=== PATIENT | female | born 1980 | race Caucasian/White ===

== ENCOUNTER 2017-03-28 12:19 | Outpatient (CLI) | payer MEDICAID ==
[~2017-03-28] VITALS: Ht 162.6 cm; Wt 84.0 kg
[2017-03-28 12:38] VITALS: BP 109/64; PULSE 75; RESP 20; Ht 162.6 cm; Wt 84.0 kg
[2017-03-28] MEDS ORDERED: PRENAT PO (12:38)
--- NOTE | 2017-03-28 14:11 | RADRPT ---
PROCEDURE: US biophysical profile. Transvaginal sonography of the cervix. CLINICAL INDICATION: labor at 27 weeks gestational age. TECHNIQUE: Multiple sonographic images of the uterus were obtained. Transvaginal sonogra phy of the cervix was also performed. The images were reviewed on a PACS workstation. COMPARISON: No prior studies are available for comparison. FINDINGS: There is a single live intrauterine gestation. heart rate is 143 beats per minute. The position is cephalic. The placenta is anterior grade 1 with no abruption or previa. The ALESSIO is 15.5 cm. (Normal = 5-20 cm.) Transvaginal cervical length is 4.2 cm. Breathing Movement: 2 Gross Body Movement: 2 Tone: 2 Qualitative Amniotic Fluid Volume: 2 TOTAL: 8 IMPRESSION: 1. The biophysical score is 8/8. 2. Cervical length is 4.2 cm. RPTAT: QQ .Jacques Dodge MD, MD Date Time Electronically viewed and signed by .Jacques Dodge MD, on 03/28/2017 14:10 .R/
--- NOTE | 2017-03-28 16:58 | TRIAGE ---
OB Triage Datetime Report Generated by CPN: 03/28/2017 16:58 Datetime: 03/28/2017 14:52 Labor Evaluation Frequency: 0 Duration (sec)2399: 0 Contraction Comments: PT DENIES UC'S AT THIS TIME. PT STATES SHE FEELS THE BABY MOVE Heart Rate FHR Baseline Rate: 145 Monitor Mode: External US Variability: Moderate 6-25 bpm Accelerations: 15X15 Decelerations: None Category: Category I Comments: NST REACTIVE FOR GESTATIONAL AGE Datetime: 03/28/2017 13:32 Labor Evaluation Frequency: 0 Monitor Mode: External Heart Rate FHR Baseline Rate: 145 Monitor Mode: External US FHR Baseline Changes: No Baseline Change Variability: Moderate 6-25 bpm Accelerations: 10X10 Decelerations: None Category: Category I Pain Assessment Pain Scale: 0 Pain Presence: None/Denies Pain Type: N/A Pain Goal: 0 Datetime: 03/28/2017 12:34 EGA: 27.4 Datetime: 03/28/2017 12:33 Time of Arrival: 03/28/2017 12:15 Arrived By: Ambulatory Arrived From: Home Chief Complaint: DECREASED MOVEMENT SINCE LAST NIGHT Movement: Decreased Contractions: Denies/Absent Rupture of Membranes: Denies Vaginal Bleeding: None Vaginal Discharge: Denies Recent Sexual Intercouse: Denies Abdominal Trauma: Not Applicable Patient Complaints: Other Time Provider Notified: 03/28/2017 12:55 Provider Notified: DR. BOYD Initial Plan: EFM, BPP Datetime: 03/28/2017 12:30 Stage of : OB Triage Assessment Type: Triage Maternal Assessment Level of Consciousness: Fully Conscious DTR's/Clonus: DTRs 2+; No Clonus Headache: Denies Blurred Vision: No Respiratory Effort: Unlabored; Regular Rhythm; Equal Expansion Breath Sounds, Left: Clear and Equal Breath Sounds, Right: Clear and Equal Nausea/Vomiting: Denies RUQ Epigastric Pain: Denies Lower Extremities Edema: None Degree: None Upper Extremities Edema: None Degree: None Facial Edema: None Fall Risk Assessment History of Falling: (0) No Secondary Diagnosis: (0) No Ambulatory Aid: (0) Bedrest/Nurse Assist IV Therapy: (0) No Gait: (0) Normal/Bedrest/Immobile Mental Status: (0) Oriented to Own Ability Fall Score: 0 Fall Risk Score Definition: No Risk: No action required Monitor Mode: External Monitor Mode: External US Pain Assessment Pain Scale: 0 Pain Presence: None/Denies Pain Type: N/A Pain Goal: 0
--- NOTE | 2017-03-28 20:08 | PN ---
Triage Information Date/Time 03/28/2017 Weeks of Gestation 27 weeks and 2 days : 4 Para: 3 Diabetes: none Hypertention: none Additional information 37-year-old female with IUP at 27 weeks and 4 days presented with complaint of decreased movement since last night. She denies any competition during her course. She also complaining of some random twitching pain in the left lower abdomen and right. Reports pain increases with moving. Denies any leaking of fluid, vaginal bleeding or uterine contractions. BISHOP: December 22, 2016. Denies any abdominal pain or any other complaints. Objective Vital Signs Date Time Temp Pulse Resp B/P Pulse Ox O2 Delivery O2 Flow Rate FiO2 03/28/17 12:38 98.3 75 20 109/64 Room Air Heart Rate: 140's Contractions: None Exam General appearance: Alert and oriented 4 patient does not appear to be in any acute distress Abdomen: Soft, gravid, nontender, no rebound tenderness, no guarding no rigidity Fundal height consistent with gestational age NST: Category 1 BPP: 8/8 Results/Medications Imaging Results PROCEDURE: US biophysical profile. Transvaginal sonography of the cervix. CLINICAL INDICATION: labor at 27 weeks gestational age. TECHNIQUE: Multiple sonographic images of the uterus were obtained. Transvaginal sonography of the cervix was also performed. The images were reviewed on a PACS workstation. COMPARISON: No prior studies are available for comparison. FINDINGS: There is a single live intrauterine gestation. heart rate is 143 beats per minute. The position is cephalic. The placenta is anterior grade 1 with no abruption or previa. The ALESSIO is 15.5 cm. (Normal = 5-20 cm.) Transvaginal cervical length is 4.2 cm. Breathing Movement: 2 Gross Body Movement: 2 Tone: 2 Qualitative Amniotic Fluid Volume: 2 TOTAL: 8 IMPRESSION: 1. The biophysical score is 8/8. 2. Cervical length is 4.2 cm. RPTAT: QQ Assessment/Plan IUP at 27 weeks and 2 days Decreased movement testing reassuring No evidence of labor Plan: DC home labor precaution and kick count discussed Follow-up within 24-48 hours with her primary OB Return to triage as needed or in case of decreased movement, uterine contractions or vaginal bleeding or any other concerns patient verbalized understanding EVERARDO BOYD MD Mar 28, 2017 20:07
== END 2017-03-28 15:05 | disposition home or self-care (01) ==
LOC: L-D 12:19 → OBT 12:19
PROVIDERS: ATTEND Obstetrics & Gynecology
DX: O36.8120 Decreased fetal movements, second trimester, not applicable or unspecified (principal); Z3A.27 27 weeks gestation of pregnancy
CPT/HCPCS: 76817; 76818; Z7500; G0463

== ENCOUNTER 2017-06-07 19:47 | Outpatient (CLI) | payer MEDICAID ==
[~2017-06-07] VITALS: Ht 162.6 cm; Wt 88.9 kg
[~2017-06-07 19:47] MED LIST: PRENAT PO
[2017-06-07 20:54] VITALS: Ht 162.6 cm; Wt 88.9 kg
[2017-06-07 20:55] VITALS: BP 100/67; PULSE 80
[2017-06-07 22:26] LABS: ADD UMIC NO; UR ASCORBIC ACID NEGATIVE (NEGATIVE); UR BILIRUBIN (Dip) NEGATIVE (NEGATIVE); UR BLOOD (Dip) NEGATIVE (NEGATIVE); UR CLARITY CLEAR (CLEAR); UR COLOR STRAW (YELLOW); UR GLUCOSE (Dip) NEGATIVE (NEGATIVE); UR KETONES (Dip) NEGATIVE (NEGATIVE); UR LEUKOCYTE ESTERASE (Dip) NEGATIVE Leu/ul (NEGATIVE); UR NITRITE (Dip) NEGATIVE (NEGATIVE); UR SPECIFIC GRAVITY (Dip) 1.008 (1.003-1.030); UR TOTAL PROTEIN (Dip) NEGATIVE (NEGATIVE); UR UROBILINOGEN (Dip) NEGATIVE (NEGATIVE)
--- NOTE | 2017-06-07 22:49 | TRIAGE ---
OB Triage Datetime Report Generated by CPN: 06/07/2017 22:49 Datetime: 06/07/2017 22:22 Stage of : OB Triage Datetime: 06/07/2017 21:44 Labor Evaluation Frequency: x1 Monitor Mode: External Duration (sec)2399: 60 Resting Tone [place]: Relaxed Heart Rate FHR Baseline Rate: 135 Monitor Mode: External US Variability: Moderate 6-25 bpm Accelerations: 10X10 Decelerations: None Category: Category I Pain Assessment Pain Scale: 5 Pain Presence: Constant Pain Type: Cramping Pain Goal: 3 Pain Relief Measures: Comfort Measures Datetime: 06/07/2017 20:51 Stage of : OB Triage Assessment Type: Triage Maternal Assessment Level of Consciousness: Fully Conscious DTR's/Clonus: DTRs 2+; No Clonus Headache: Denies Blurred Vision: No Respiratory Effort: Unlabored; Regular Rhythm; Equal Expansion Breath Sounds, Left: Clear and Equal Breath Sounds, Right: Clear and Equal Nausea/Vomiting: Denies RUQ Epigastric Pain: Denies Facial Edema: None Temperature Route: Axillary Fall Risk Assessment History of Falling: (0) No Secondary Diagnosis: (0) No Ambulatory Aid: (0) Bedrest/Nurse Assist IV Therapy: (0) No Gait: (0) Normal/Bedrest/Immobile Mental Status: (0) Oriented to Own Ability Fall Score: 0 Fall Risk Score Definition: No Risk: No action required Labor Evaluation Frequency: 0 Monitor Mode: External Resting Tone [place]: Relaxed Heart Rate FHR Baseline Rate: 140 Monitor Mode: External US Variability: Minimal - Undetectable to <=5 bpm Accelerations: None Decelerations: None Category: Category II Pain Assessment Pain Scale: 5 Pain Presence: Constant Pain Type: Cramping Pain Location: Other (Annotations: [place]) Pain Goal: 3 Pain Relief Measures: Comfort Measures Datetime: 06/07/2017 20:49 Time of Arrival: 06/07/2017 19:36 EGA: 37.5 Arrived By: Ambulatory Arrived From: Home Chief Complaint: C/O [place] PAIN THAT IS CONSTANT, DENIES LEAKING, BLEEDING OR UC'S Movement: Present Contractions: Denies/Absent Rupture of Membranes: Denies Vaginal Bleeding: None Vaginal Discharge: Denies Recent Sexual Intercouse: Denies Abdominal Trauma: Not Applicable Patient Complaints: None Time Provider Notified: 06/07/2017 22:22 Provider Notified: RASHEED Initial Plan: MONITOR, Datetime: 03/28/2017 12:34 EGA: 27.4 Datetime: 03/28/2017 12:30 Fall Score: 0 Fall Risk Score Definition: No Risk: No action required
--- NOTE | 2017-06-08 20:34 | PN ---
Triage Information Date/Time Reason for visit: Abd/pelvic pain Weeks of Gestation 37w5d /Para Diabetes: none Hypertention: none Objective Vital Signs Date Time Temp Pulse Resp B/P Pulse Ox O2 Delivery O2 Flow Rate FiO2 06/07/17 20:55 98.2 80 100/67 Heart Rate: 140's Contractions: None Exam abdomen soft no tenderness CVA neg for tenderness Results/Medications Results 24 hrs Laboratory Tests Test 06/07/17 21:00 Urine Color STRAW Urine Clarity CLEAR Urine pH 6.0 Urine Specific [place] 1.008 Urine Ketones NEGATIVE Urine Nitrite NEGATIVE Urine Bilirubin NEGATIVE Urine Urobilinogen NEGATIVE Urine Leukocyte Esterase NEGATIVE Urine Hemoglobin NEGATIVE Urine Glucose NEGATIVE Urine Total Protein NEGATIVE Disposition: Discharge Assessment/Plan IUP 37w5d nil plan dischargehome with routine labor instruction clinic appointment on 06/08/17 ANITA IQBAL MD Jun 08, 2017 20:34
== END 2017-06-07 22:36 | disposition home or self-care (01) ==
LOC: OBT 19:47 → L-D 19:47 → OBT 22:36
PROVIDERS: ATTEND Obstetrics & Gynecology
DX: O26.893 Other specified pregnancy related conditions, third trimester (principal); Z3A.37 37 weeks gestation of pregnancy
CPT/HCPCS: 81003; 87086; G0463

== ENCOUNTER 2017-06-19 05:32 | Inpatient (IN) | payer MEDICAID ==
[~2017-06-19] VITALS: Ht 160 cm; Wt 88.4 kg
[2017-06-19] MEDS ORDERED: CEFAZOLIN 2 GM/50 ML (PMX) 50 ML IVPB ONE (05:34)
[2017-06-19 05:42] VITALS: Ht 160 cm; Wt 88.4 kg
[2017-06-19 05:49] VITALS: BP 108/72; PULSE 80; RESP 16
[2017-06-19] MEDS ORDERED: METHYLERGONOVINE 0.2 MG INJ IM PRN ×2 (06:00→13:30)
[2017-06-19] MEDS ORDERED: OXYTOCIN 30 UNITS/LR 500 ML IV SCH (06:00)
[2017-06-19] MEDS ORDERED: MISOPROSTOL 200 MCG TAB PR PRN ×2 (06:00→13:30)
[2017-06-19] MEDS ORDERED: OXYTOCIN 30 UNITS/LR 500 ML IV PRN ×2 (06:00→13:30)
[2017-06-19] MEDS ORDERED: CARBOPROST 250 MCG INJ IM PRN ×2 (06:00→13:30)
[2017-06-19] MEDS ORDERED: CEFAZOLIN 2 GM/50 ML (PMX) 50 ML IV SCH (06:00)
[2017-06-19 06:23] LABS: BASOPHILS % 0.3 % (0.0-2.0); EOSINOPHILS # 0.3 10^3/ul (0.0-0.5); EOSINOPHILS % 3.2 % (0.0-7.0); HEMOGLOBIN 12.2 g/dl (12.0-16.0); LYMPHOCYTES # 2.4 10^3/ul (0.8-2.9); LYMPHOCYTES % 27.4 % (15.0-51.0); MEAN CORPUSCULAR HEMOGLOBIN 27.5 pg (29.0-33.0); MEAN CORPUSCULAR HGB CONC 32.1 g/dl (32.0-37.0); MEAN CORPUSCULAR VOLUME 85.6 fl (82.0-101.0); MEAN PLATELET VOLUME 11.3 fl (7.4-10.4); MONOCYTE # 0.7 10^3/ul (0.3-0.9); MONOCYTES % 7.6 % (0.0-11.0); NEUTROPHIL # 5.3 10^3/ul (1.6-7.5); NEUTROPHILS % 60.8 % (39.0-77.0); PLATELET COUNT 180 10^3/UL (140-415); RED BLOOD COUNT 4.44 10^6/ul (4.20-5.40); RED CELL DISTRIBUTION WIDTH 14.3 % (11.5-14.5); WHITE BLOOD COUNT 8.7 10^3/ul (4.8-10.8)
[2017-06-19] MEDS ORDERED: LACTATED RINGER'S 1,000 ML IV SCH ×2 (06:30)
[2017-06-19 06:46] LABS: INR 0.86; PROTIME 11.7 Sec (12.2-14.2); PT RATIO 0.9
[2017-06-19 06:47] LABS: PARTIAL THROMBOPLASTIN TIME 25.8 Sec (25.0-35.0)
[2017-06-19] MEDS ORDERED: OXYTOCIN 30 UNITS/LR 500 ML IV ONE (08:30)
[2017-06-19] MEDS ORDERED: EPHEDrine SULFATE 50 MG/5 ML SYG ONE (08:30)
[2017-06-19] MEDS ORDERED: METOCLOPRAMIDE 10 MG INJ ONE (08:31)
[2017-06-19] MEDS ORDERED: morphine SULFATE/PF (10 MG/10 ML) INJ ONE (08:31)
[2017-06-19] MEDS ORDERED: ONDANSETRON 4 MG INJ ONE (08:31)
[2017-06-19] MEDS ORDERED: OXYTOCIN 10 UNIT INJ ONE (08:31)
--- NOTE | 2017-06-19 10:13 | HP ---
Date/Time of Note Date/Time of Note DATE: 06/19/17 TIME: 08:46 OB - History Hx of Present Free Text/Dictation 36 years old female [id number] admitted to [facility] at 39 weeks and 3 days with a history of 3 previous section and requests for bilateral tubal ligation at the time o her fourth section. Patient has been under the care of the [facility] was not complicated with gestational diabetes -induced hypertension [employer] history [place] at age 13 regular periods. Every 28 days lasting 4 to 5 days history of 3 previous with section no other surgery or hospitalization for any other serious surgical or medical condition Allergies denies allergy to any known medication Social habit denies a smoking drinking using illicit drug Review of system within Equal examination 5 feet 3 158 pounds Temperature 98.4 pulse 80 respiration 18 blood pressure 108/72 Dear nose and throat negative Neck supple no thyromegaly Lungs clear to P&A Normal sinus rhythm no murmur Abdomen fundal height measures 37 cm from symphysis pubis with the heart rate category 1 Examination deferred Remedies no edema no varicosities Patient intrauterine at 39 weeks gestation, history of 2 previous section, request for bilateral tubal ligation at the time of her section Complication of the surgery including but not limited to bowel and bladder injury infection wound, hematoma hemorrhage because of numerous previous surgeries to ability of hysterectomy has been because with the patient and she is willing to go ahead with this procedure Chief Complaint: 39 weeks history of 3 previous section request for BTL Estimated Due Date: Jun 23, 2017 : 4 Para: 3 Care: Good Care Ultrasounds: Normal mid trimester US Obstetrical Complications: None Medical Complications: None Past Family/Social History * Past Medical, Surgical, Family and Obstetric Histories reviewed from chart. Rubella: immune RPR/VDRL: Negative GBS Status: Negative HBsAG: Negative OB Admission Exam Vital Signs Vital Signs Vital Signs Date Time Temp Pulse Resp B/P Pulse Ox O2 Delivery O2 Flow Rate FiO2 06/19/17 05:49 98.4 80 16 108/72 Room Air Physical Exam HEENT: WNL Heart: Rhythm Normal Lungs: Clear, Equal Extremities: Normal Reflexes: Normal Cervical Dilatation: None Membranes: Intact Heart Rate: 130's Accelerations: Accelerations Present Decelerations: No Decelerations Varibility: Marked Last 72 hours Lab Results CBC & BMP 06/19/17 06:00 OB Assessment/Plan Reason for admission: other (39weeks 3/7 3previous c section request for tubal ligation complication of surgery discussed including bowl ,blader injury woun infection ,future failure to concive risk of ectopic ,she would like to proceed with the operation) Plan: Other (repeat csection bilateral tubal ligation) Other plan: 39 weeks3/7 hx of 3 previous c section request for tubal ligation, RACHAEL DEMARCO MD Jun 19, 2017 08:56
[2017-06-19] MEDS ORDERED: EPHEDrine SULFATE 50 MG/5 ML SYG IV PRN (10:30)
[2017-06-19] MEDS ORDERED: morphine SULFATE/PF (10 MG/10 ML) INJ SPINAL ONE (10:30)
[2017-06-19] MEDS ORDERED: ONDANSETRON 4 MG INJ IV PRN (10:30)
[2017-06-19] MEDS ORDERED: NALOXONE (0.4 MG/ML) INJ IV PRN (10:30)
[2017-06-19] MEDS ORDERED: morphine 2 MG INJ IV PRN (10:30)
[2017-06-19] MEDS ORDERED: morphine 4 MG/ML VIAL IV PRN (10:30)
--- NOTE | 2017-06-19 10:36 | OPR ---
Operative Report Planned Procedure Free Text/Dictation 39weeks 11/14 ,[id number] c sectio requesting btl Procedure date Jun 19, 2017 Procedure(s) repeat c section btl Performed by see signature line Assisting provider: ANITA IQBAL MD Anesthesiologist: FAITH MALDONADO MD Pre-procedure diagnosis 3 previous c section requesting BTL Anesthesia Type: spinal Procedure Description Under satisfactory [spinal] anesthesia, the patient was prepped and draped and placed in a supine position, tilted to the left. Pfannenstiel incision was made , carried through the subcutaneous tissue. Bleeders brought under control with electrocautery. Fascia incised to the length of the incision. Rectus muscles from the fascia, divided midline. Peritoneum exposed, entered through a transverse incision. Exploration of abdomen revealed gravid uterus. Bladder flap was developed. Transverse incision was made in the lower segment of the uterus. Amniotic sac ruptured. [clear] amniotic fluid noted.live baby boy was deliver from vertex presentation[] Nasal oropharyngeal suction was performed. baby handed to the team for immediate attention. placenta was delivered manually intact. Uterine cavity cleaned with wet sponge and drainage established. Uterus closed in 2 layers using Monocryl no1[] in continuous fashion bilateral tubal ligation performed by identifying.rt tube, ampullar section of the tube resected suture material used 0 plain catgut#2 same procedure performed for the opposite side , Peritoneal cavity irrigated with warm saline. Sponge, needle and instrument count reported to be correct. Abdominal peritoneum closed with [2/0chrmic catgut] continuously. Rectus muscle approximated with [2/0cc]. Fascia closed with no1 pds], sub cutaneous tissue repaired with 2/0cc.skin closed with N SORB Estimated blood loss []600mL. Urine bag contained 200[]mL of clear urine Post-Procedure Findings: Live Baby boy 9/9 Estimated blood loss: other (600cc) Specimen(s): no Grafts/Implants: no Complication(s): no Pt Condition post procedure: stable Physician Certification I, the undersigned physician, hereby certify that I have discussed the procedure described in this consent form with this patient (or the patient's legal denial management representative), including: * The risk and benefits of the procedure; * Any adverse reactions that may reasonably be expected to occur; * Any alternative efficacious methods of treatment which may be medically viable ; * The potential problems that may occur during recuperation; * Potential for blood transfusion and associated risks/benefits; and * Any research or economic interest I may have regarding this treatment. I further certify that the patient/legally responsible person was encouraged to ask question and that all questions were answered. RACHAEL DEMARCO MD Jun 19, 2017 10:34
[2017-06-19 13:00] VITALS: BP 108/60; PULSE 59; RESP 16
[2017-06-19] MEDS: OXYTOCIN 30 UNITS/LR 500 ML IV SCH ×3 (13:27→20:19)
[2017-06-19] MEDS ORDERED: CEFAZOLIN 1 GM/50 ML (PMX) 50 ML IVPB SCH (13:30)
[2017-06-19] MEDS ORDERED: HYDROCODONE/APAP (5/325) TAB PO PRN ×2 (13:30)
[2017-06-19] MEDS ORDERED: LANOLIN 7 GM TUBE TOP PRN (13:30)
[2017-06-19] MEDS ORDERED: OXYCODONE/ACETAMINOPHEN (5/325) TAB PO PRN (13:30)
[2017-06-19] MEDS: DIPHENHYDRAMINE 50 MG INJ IV PRN (13:40)
[2017-06-19 16:00] VITALS: BP 103/62; PULSE 69; RESP 16
[2017-06-19 20:00] VITALS: BP 114/68; PULSE 74; RESP 18
[2017-06-19] MEDS: SENNA/DOCUSATE NA (8.6MG/50MG) TAB PO SCH (20:19)
[2017-06-20] VITALS: BP 110/60; PULSE 70; RESP 20
[2017-06-20] MEDS: OXYTOCIN 30 UNITS/LR 500 ML IV SCH ×2 (00:42→05:27)
[2017-06-20] MEDS: DIPHENHYDRAMINE 50 MG INJ IV PRN (02:15)
[2017-06-20 04:00] VITALS: BP 96/53; PULSE 82; RESP 18
[2017-06-20] MEDS: LACTATED RINGER'S 1,000 ML IV SCH ×2 (05:25→12:40)
[2017-06-20] MEDS: KETOROLAC 30 MG INJ IV PRN ×2 (06:32→07:20)
[2017-06-20 08:10] VITALS: BP 92/50; PULSE 77; RESP 16
[2017-06-20] MEDS: SENNA/DOCUSATE NA (8.6MG/50MG) TAB PO SCH ×2 (09:24→22:48)
[2017-06-20 10:37] LABS: BASOPHILS % 0.2 % (0.0-2.0); EOSINOPHILS # 0.2 10^3/ul (0.0-0.5); EOSINOPHILS % 1.6 % (0.0-7.0); HEMATOCRIT 34.6 % (37.0-47.0); LYMPHOCYTES # 1.5 10^3/ul (0.8-2.9); LYMPHOCYTES % 11.4 % (15.0-51.0); MEAN CORPUSCULAR HEMOGLOBIN 27.4 pg (29.0-33.0); MEAN CORPUSCULAR HGB CONC 31.8 g/dl (32.0-37.0); MEAN CORPUSCULAR VOLUME 86.3 fl (82.0-101.0); MEAN PLATELET VOLUME 11.2 fl (7.4-10.4); MONOCYTE # 0.7 10^3/ul (0.3-0.9); MONOCYTES % 5.4 % (0.0-11.0); NEUTROPHIL # 10.9 10^3/ul (1.6-7.5); PLATELET COUNT 136 10^3/UL (140-415); RED BLOOD COUNT 4.01 10^6/ul (4.20-5.40); RED CELL DISTRIBUTION WIDTH 14.6 % (11.5-14.5); WHITE BLOOD COUNT 13.4 10^3/ul (4.8-10.8)
[2017-06-20] MEDS: OXYCODONE/ACETAMINOPHEN (5/325) TAB PO PRN ×3 (10:59→22:54)
[2017-06-20] MEDS: IBUPROFEN 600 MG TAB PO SCH ×2 (12:25→17:57)
[2017-06-20 16:00] VITALS: BP 106/63; PULSE 61; RESP 18
--- NOTE | 2017-06-20 17:01 | QN ---
Documentation Comment Section day 1 Afebrile Vital signs are stable Abdomen soft, bowel sounds present, incision dry' Lochia moderate Extremities normal Ambulation encouraged RACHAEL DEMARCO MD Jun 20, 2017 17:01
[2017-06-20 20:00] VITALS: BP 94/61; PULSE 84; RESP 20
[2017-06-21] MEDS: IBUPROFEN 600 MG TAB PO SCH ×4 (01:37→17:20)
[2017-06-21 04:00] VITALS: BP 105/59; PULSE 73; RESP 20
[2017-06-21 07:40] VITALS: BP 105/69; PULSE 79; RESP 16
[2017-06-21] MEDS: OXYCODONE/ACETAMINOPHEN (5/325) TAB PO PRN ×3 (07:58→20:40)
[2017-06-21] MEDS: SENNA/DOCUSATE NA (8.6MG/50MG) TAB PO SCH ×2 (08:33→20:40)
--- NOTE | 2017-06-21 12:09 | QN ---
Documentation Comment Post day 2 Afebrile Vital signs are stable Incision dry Bowel sounds present no bowel movement Extremities normal Lochia moderate Ambulation encouraged RACHAEL DEMARCO MD Jun 21, 2017 12:09
[2017-06-21] MEDS ORDERED: NA PHOSPHATE/BIPHOS 133 ML ENEMA PR ONE (12:30)
[2017-06-21 16:00] VITALS: BP 115/71; PULSE 86; RESP 18
[2017-06-21] MEDS ORDERED: MEASLES,MUMPS,RUBELLA VACCINE INJ SC* ONE (17:00)
[2017-06-21 20:00] VITALS: BP 119/75; PULSE 74; RESP 18
[2017-06-22] MEDS: IBUPROFEN 600 MG TAB PO SCH ×4 (00:31→17:10)
[2017-06-22 04:00] VITALS: BP 110/68; PULSE 83; RESP 18
[2017-06-22 08:00] VITALS: BP 111/68; PULSE 84; RESP 16
[2017-06-22] MEDS ORDERED: DIPHTH/TET/ACEL PERTUSS (ADULT) 0.5 ML VIAL IM* ONE (09:00)
[2017-06-22] MEDS: SENNA/DOCUSATE NA (8.6MG/50MG) TAB PO SCH ×2 (09:07→21:08)
--- NOTE | 2017-06-22 10:27 | QN ---
Documentation Comment POD#3 is stable afebrile +BM +Voids,No VB VS stable Gen NAD Abd soft NT ND Incision intact Genitalia No blood at perinium --->discharge plan --->f/u in 2wks with primary physician LEO BARTH M.D. Jun 22, 2017 10:27
--- NOTE | 2017-06-22 10:28 | DS ---
Date/Time of Note Date/Time of Note DATE: 06/22/17 TIME: 10:27 Discharge Summary Admission/Discharge Info Admit Date/Time Jun 19, 2017 at 05:32 Discharge Date/Time Discharge Diagnosis Patient Condition: Good Procedures c/section Hospital Course uneventful Home Meds Reported Medications Multivit/Min/Fol Ac/Iron/Pren* ( S*) 1 Tab Tab, 1 TAB PO DAILY, TAB 03/28/17 Primary Care Provider Care Physician No Primary LEO BARTH M.D. Jun 22, 2017 10:28
[2017-06-22 15:53] VITALS: BP 107/70; PULSE 82; RESP 18
[2017-06-22 20:00] VITALS: BP 122/89; PULSE 77; RESP 18
[2017-06-23] MEDS: IBUPROFEN 600 MG TAB PO SCH ×2 (00:39→06:31)
[2017-06-23 04:00] VITALS: BP 107/68; PULSE 78; RESP 18
[2017-06-23 08:00] VITALS: BP 110/84; PULSE 76; RESP 15
[2017-06-23] MEDS: SENNA/DOCUSATE NA (8.6MG/50MG) TAB PO SCH (08:52)
== END 2017-06-23 15:39 | disposition home or self-care (01) | DRG 766 ==
LOC: L-D 05:32 → PP1 13:12
PROVIDERS: ADMIT Obstetrics & Gynecology; ATTEND Obstetrics & Gynecology
PROC: 0UL70ZZ Occlusion of Bilateral Fallopian Tubes, Open Approach (ICD-10-PCS; 2017-06-19)
PROC: 3E0P3VZ Introduction of Hormone into Female Reproductive, Percutaneous Approach (ICD-10-PCS; 2017-06-19)
PROC: 10D00Z1 Extraction of Products of Conception, Low, Open Approach (ICD-10-PCS; principal; 2017-06-19 07:30)
DX: O34.211 Maternal care for low transverse scar from previous cesarean delivery (principal); Z30.2 Encounter for sterilization; Z37.0 Single live birth; Z3A.39 39 weeks gestation of pregnancy
CPT/HCPCS: 85025; 85610; 85730; 86592; 86850; 86900; 86901; 86920; 87340; 88305; 90715; 99464; J0690; J1200; J1885; J2274; J2405; J2590; J2765; J7120